=== PATIENT | female | born 1985 | race Hispanic/Latino ===

== ENCOUNTER 2024-05-07 12:28 | Observation (INO) | payer BC, MEDICAID ==
[2024-05-07 13:19] LABS: APPEARANCE,URINE CLEAR (CLEAR); BILIRUBIN,URINE NEGATIVE (NEGATIVE); COLOR,URINE COLORLESS (YELLOW); GLUCOSE, URINE (UA) NEGATIVE (NEGATIVE); KETONES,URINE NEGATIVE (NEGATIVE); LEUKOCYTE ESTERASE ,URINE 250 Leu/uL (NEGATIVE); NITRATE,URINE NEGATIVE (NEGATIVE); OCCULT BLOOD,URINE NEGATIVE (NEGATIVE); PH,URINE 6.5 (5.0-8.0); PROTEIN,URINE NEGATIVE (NEGATIVE); UROBILINOGEN,URINE 0.2 mg/dL (0.2-1.0)
[2024-05-07 13:23] LABS: ADD UA MICROSCOPIC YES
[2024-05-07 13:25] LABS: BACTERIA,URINE RARE /HPF (None Seen); MUCUS,URINE RARE LPF (None Seen); RBC,URINE 0-1 /HPF (0-1); SQUAMOUS EPITHELIAL CELL,UR FEW /HPF (0-2)
--- NOTE | 2024-05-07 15:44 | HMCIMG ---
US FBP WO NON-STRESS HISTORY: Decreased movement COMPARISON: None TECHNIQUE: Ultrasound biophysical profile study was performed. FINDINGS: Patient scored a total of 8 points with 2 points each for breathing movements, gross body movements, tone and amniotic fluid volume. Fetus is in cephalic presentation with longitudinal lie. heart rate is 168 beats per minute. Amniotic fluid index is 15.7 centimeter. Placenta is located anteriorly. IMPRESSION: 1. Normal ultrasound biophysical profile study.
[2024-05-09] MEDS ORDERED: PREN1COM17 PO (15:36)
== END 2024-05-07 14:05 | disposition home or self-care (01) ==
LOC: EDH 12:28 → LDH 12:29
PROVIDERS: ADMIT Obstetrics & Gynecology; ATTEND Obstetrics & Gynecology
DX: O36.8130 Decreased fetal movements, third trimester, not applicable or unspecified (principal); Z3A.38 38 weeks gestation of pregnancy; Z87.891 Personal history of nicotine dependence
CPT/HCPCS: 76819; 87086; 81001; G0379; G0378; 59025